=== PATIENT | female | born 1935 | race African-American/Black ===

== ENCOUNTER 2022-05-11 13:02 | Inpatient (IN) | payer OTHER ==
[~2022-05-11] VITALS: Ht 160 cm; Wt 57.2 kg
[2022-05-11 13:54] LABS: HEMOGLOBIN. 11.7 g/dL (12.0-16.0); MEAN CORPUSCULAR HEMOGLOBIN 27.5 pg (28.0-32.0); MEAN CORPUSCULAR VOLUME 84.4 fL (81.0-99.0); MEAN PLATELET VOLUME 8.4 fl (7.4-10.4); PLATELET 196 x1000/uL (130-400); RED BLOOD CELL COUNT 4.27 mill/uL (4.2-5.4)
[2022-05-11 13:59] LABS: CHLORIDE 104 mEq/L (98-107)
[2022-05-11 14:09] LABS: ETHANOL BLOOD < 10 mg/dL
[2022-05-11 14:42] LABS: PLATELET ESTIMATE NORMAL
[2022-05-11 15:37] LABS: *AMPHETAMINES SCREEN URINE NEGATIVE (NEGATIVE); *BARBITURATES SCREEN URINE NEGATIVE (NEGATIVE); *BENZODIAZEPINES SCREEN URINE NEGATIVE (NEGATIVE); *COCAINE SCREEN URINE NEGATIVE (NEGATIVE); CANNABINOID URINE SCREEN NEGATIVE (NEGATIVE); METHADONE URINE SCREEN NEGATIVE (NEGATIVE); OPIATES URINE SCREEN NEGATIVE (NEGATIVE); PHENCYCLIDINE URINE SCREEN NEGATIVE (NEGATIVE)
[2022-05-11] MEDS ORDERED: ACETAMINOPHEN 325MG TABLET PO NR (16:15)
[2022-05-11] MEDS ORDERED: CLONIDINE 0.1MG TABLET PO PRN (19:00)
[2022-05-11] MEDS ORDERED: IPRATROPIUM/ALBUTEROL 0.5-3(2.5)MG/3ML NEB HHN PRN (19:00)
[2022-05-11] MEDS ORDERED: ONDANSETRON HCL 4MG/2ML INJ IV PRN (19:00)
[2022-05-11] MEDS ORDERED: LORAZEPAM 0.5MG TABLET PO PRN (19:00)
[2022-05-11] MEDS ORDERED: ACETAMINOPHEN 325MG TABLET PO PRN (19:00)
[2022-05-11] MEDS ORDERED: DOCUSATE SODIUM 100MG CAPSULE PO PRN (19:00)
[2022-05-11] MEDS ORDERED: NALOXONE HCL 0.4MG/ML VIAL IV PRN (19:00)
[2022-05-12 05:50] LABS: BASOPHILS % 0.9 % (0.0-2.0); EOSINOPHILS % 4.5 % (0.0-5.0); HEMATOCRIT. 32.6 % (36.0-48.0); HEMOGLOBIN. 10.8 g/dL (12.0-16.0); LYMPHOCYTES % 33.6 % (20.0-50.0); MEAN CORPUSCULAR HEMOGLOBIN 27.3 pg (28.0-32.0); MEAN CORPUSCULAR VOLUME 82.3 fL (81.0-99.0); MEAN PLATELET VOLUME 8.2 fl (7.4-10.4); PLATELET 234 x1000/uL (130-400); RED BLOOD CELL COUNT 3.97 mill/uL (4.2-5.4); RED CELL DISTRIBUTION WIDTH 17.2 % (11.6-14.6)
[2022-05-12 09:54] VITALS: BP 142/68
[2022-05-12 10:02] VITALS: BP 142/68
[2022-05-12] MEDS ORDERED: TOPUD PO (10:28)
[2022-05-12] MEDS ORDERED: MECLIZINE 12.5MG TABLET PO PRN (11:45)
[2022-05-12 12:29] VITALS: BP 160/70
[2022-05-12] MEDS ORDERED: IPRATROPIUM BROMIDE (0.02%) 0.5MG/2.5ML NEB HHN PRN (15:45)
[2022-05-12] MEDS ORDERED: ALBUTEROL (0.083%) 2.5MG/3ML NEB HHN PRN (15:45)
[2022-05-12 16:00] VITALS: BP 133/74
[2022-05-12 20:00] VITALS: BP 134/74
[2022-05-12] MEDS: ACETAMINOPHEN 325MG TABLET PO PRN (21:20)
[2022-05-13] VITALS: BP 140/68
[2022-05-13 04:00] VITALS: BP 147/75
[2022-05-13 08:00] VITALS: BP 137/78
[2022-05-13 08:24] LABS: VITAMIN B12 SERUM 872 pg/mL (211-911)
[2022-05-13] MEDS: ACETAMINOPHEN 325MG TABLET PO PRN (09:55)
[2022-05-13 12:00] VITALS: BP_SYST 119; BP_SYST 163; BP_SYST 176; BP_DIAS 66; BP_DIAS 71; BP_DIAS 73
[2022-05-13 16:00] VITALS: BP 129/73
[2022-05-13] MEDS: CARBAMIDE PEROXIDE 6.5% OTIC SOLN 15ML EACH EAR SCH (16:50)
[2022-05-13 20:00] VITALS: BP 157/83
[2022-05-14] VITALS: BP 118/87
[2022-05-14] MEDS: NEOMYCIN-POLYMYXIN-HYDROCORTISONE 1% OTIC SUSP 10ML LEFT EAR SCH ×3 (03:52→17:14)
[2022-05-14 04:00] VITALS: BP 146/76
[2022-05-14] MEDS: ACETAMINOPHEN 325MG TABLET PO PRN (04:02)
[2022-05-14 08:00] VITALS: BP 101/65
[2022-05-14] MEDS: CARBAMIDE PEROXIDE 6.5% OTIC SOLN 15ML EACH EAR SCH (09:17)
[2022-05-14] MEDS: DICLOFENAC SODIUM 1% GEL 50GM TOP SCH ×4 (10:56→21:52)
[2022-05-14 11:45] VITALS: BP 116/65
[2022-05-14 16:00] VITALS: BP 147/69
[2022-05-14 20:00] VITALS: BP 149/90
[2022-05-14 20:35] LABS: PROTHROMBIN TIME 10.9 sec (9.6-11.0)
[2022-05-14] MEDS: HYDROCODONE/ACETAMINOPHEN 5/325MG TABLET PO PRN (21:51)
[2022-05-15] VITALS: BP 147/75
[2022-05-15] MEDS: NEOMYCIN-POLYMYXIN-HYDROCORTISONE 1% OTIC SUSP 10ML LEFT EAR SCH ×4 (00:05→17:25)
[2022-05-15 04:00] VITALS: BP 158/74
[2022-05-15 06:24] LABS: BASOPHILS % 0.8 % (0.0-2.0); EOSINOPHILS % 3.2 % (0.0-5.0); HEMATOCRIT. 30.1 % (36.0-48.0); HEMOGLOBIN. 10.1 g/dL (12.0-16.0); LYMPHOCYTES % 29.6 % (20.0-50.0); MEAN CORPUSCULAR HEMOGLOBIN 27.8 pg (28.0-32.0); MEAN CORPUSCULAR VOLUME 82.5 fL (81.0-99.0); MEAN PLATELET VOLUME 8.4 fl (7.4-10.4); MONOCYTES % 11.6 % (2.0-8.0); NEUTROPHILS % 54.8 % (40.0-76.0); PLATELET 213 x1000/uL (130-400); RED BLOOD CELL COUNT 3.65 mill/uL (4.2-5.4); RED CELL DISTRIBUTION WIDTH 16.9 % (11.6-14.6)
[2022-05-15 08:00] VITALS: BP 146/67
[2022-05-15] MEDS: DICLOFENAC SODIUM 1% GEL 50GM TOP SCH ×4 (08:07→20:23)
[2022-05-15 12:00] VITALS: BP 144/71
[2022-05-15] MEDS: LIDOCAINE 5% PATCH TOP SCH (15:51)
[2022-05-15 16:00] VITALS: BP 133/54
[2022-05-15 20:00] VITALS: BP 117/56
[2022-05-16] VITALS: BP 123/71
[2022-05-16] MEDS: NEOMYCIN-POLYMYXIN-HYDROCORTISONE 1% OTIC SUSP 10ML LEFT EAR SCH ×5 (01:14→23:52)
[2022-05-16 04:00] VITALS: BP 140/62
[2022-05-16] MEDS: HYDROCODONE/ACETAMINOPHEN 5/325MG TABLET PO PRN (05:17)
[2022-05-16 08:00] VITALS: BP 143/76
[2022-05-16] MEDS: DICLOFENAC SODIUM 1% GEL 50GM TOP SCH ×4 (09:00→20:37)
[2022-05-16] MEDS: LIDOCAINE 5% PATCH TOP SCH (11:05)
[2022-05-16 12:00] VITALS: BP 119/68
[2022-05-16 16:00] VITALS: BP 124/51
[2022-05-16 20:00] VITALS: BP 125/53
[2022-05-16] MEDS: ACETAMINOPHEN 325MG TABLET PO PRN (20:37)
[2022-05-17] VITALS: BP 125/47
[2022-05-17 04:00] VITALS: BP 164/76
[2022-05-17] MEDS: NEOMYCIN-POLYMYXIN-HYDROCORTISONE 1% OTIC SUSP 10ML LEFT EAR SCH ×3 (06:30→18:00)
[2022-05-17 06:56] LABS: HEMATOCRIT. 29.1 % (36.0-48.0); HEMOGLOBIN. 9.7 g/dL (12.0-16.0); MEAN CORPUSCULAR HEMOGLOBIN 27.9 pg (28.0-32.0); MEAN CORPUSCULAR VOLUME 83.2 fL (81.0-99.0); MEAN PLATELET VOLUME 8.8 fl (7.4-10.4); PLATELET 216 x1000/uL (130-400); RED BLOOD CELL COUNT 3.49 mill/uL (4.2-5.4); RED CELL DISTRIBUTION WIDTH 16.8 % (11.6-14.6)
[2022-05-17 08:00] VITALS: BP 107/42
[2022-05-17] MEDS: DICLOFENAC SODIUM 1% GEL 50GM TOP SCH ×4 (09:00→20:33)
[2022-05-17] MEDS: LIDOCAINE 5% PATCH TOP SCH (09:00)
[2022-05-17 09:39] LABS: PLATELET ESTIMATE NORMAL
[2022-05-17 12:00] VITALS: BP 119/57
[2022-05-17 16:16] VITALS: BP 136/57
[2022-05-17 20:00] VITALS: BP 153/66
[2022-05-18] VITALS: BP 129/69
[2022-05-18] MEDS: NEOMYCIN-POLYMYXIN-HYDROCORTISONE 1% OTIC SUSP 10ML LEFT EAR SCH ×5 (00:03→17:16)
[2022-05-18] MEDS: ACETAMINOPHEN 325MG TABLET PO PRN ×2 (02:24→21:00)
[2022-05-18 04:00] VITALS: BP 160/75
[2022-05-18 08:00] VITALS: BP 132/71
[2022-05-18] MEDS: DICLOFENAC SODIUM 1% GEL 50GM TOP SCH ×4 (09:00→20:35)
[2022-05-18] MEDS: LIDOCAINE 5% PATCH TOP SCH (10:19)
[2022-05-18 12:00] VITALS: BP 147/74
[2022-05-18 15:27] VITALS: BP 150/87
[2022-05-18 20:00] VITALS: BP 119/55
[2022-05-19] VITALS: BP 122/80
[2022-05-19] MEDS: NEOMYCIN-POLYMYXIN-HYDROCORTISONE 1% OTIC SUSP 10ML LEFT EAR SCH ×2 (00:08→06:08)
[2022-05-19 04:00] VITALS: BP 145/66
[2022-05-19] MEDS: LIDOCAINE 5% PATCH TOP SCH (08:32)
[2022-05-19] MEDS: DICLOFENAC SODIUM 1% GEL 50GM TOP SCH ×4 (08:32→20:18)
[2022-05-19 08:47] VITALS: BP 148/69
[2022-05-19 12:33] VITALS: BP 147/63
[2022-05-19 15:52] VITALS: BP 128/80
[2022-05-19 20:00] VITALS: BP 109/59
[2022-05-20] VITALS: BP 111/80
[2022-05-20 04:00] VITALS: BP 137/56
[2022-05-20] MEDS: ACETAMINOPHEN 325MG TABLET PO PRN ×2 (06:25→20:38)
[2022-05-20] MEDS: LIDOCAINE 5% PATCH TOP SCH (09:02)
[2022-05-20] MEDS: DICLOFENAC SODIUM 1% GEL 50GM TOP SCH ×4 (09:35→20:42)
[2022-05-20 11:27] VITALS: BP 125/87
[2022-05-20] MEDS ORDERED: DICL100G31 TP (13:07)
[2022-05-20] MEDS ORDERED: ASPI-1497 MT (13:07)
[2022-05-20] MEDS ORDERED: LIDO700A30 TOP (13:07)
[2022-05-20] MEDS ORDERED: NALOXONE HCL 0.4MG/ML VIAL IV PRN (13:30)
[2022-05-20] MEDS: HYDROCODONE/ACETAMINOPHEN 5/325MG TABLET PO PRN (15:48)
[2022-05-20 16:47] VITALS: BP 142/59
[2022-05-20 20:00] VITALS: BP 122/51
[2022-05-21] VITALS (7 sets, daily range): BP systolic 115–157; BP diastolic 55–96
[2022-05-21] MEDS: ACETAMINOPHEN 325MG TABLET PO PRN (02:21)
[2022-05-21] MEDS: DICLOFENAC SODIUM 1% GEL 50GM TOP SCH ×4 (09:27→21:11)
[2022-05-21] MEDS: LIDOCAINE 5% PATCH TOP SCH (09:28)
[2022-05-21] MEDS ORDERED: CEPHALEXIN 250MG/5ML ORAL SYRINGE PO SCH (17:00)
[2022-05-21] MEDS: CEPHALEXIN 250MG CAPSULE PO SCH (17:28)
[2022-05-22] VITALS: BP_SYST 137; BP_SYST 140; BP_DIAS 84; BP_DIAS 93
[2022-05-22] MEDS: CEPHALEXIN 250MG CAPSULE PO SCH ×3 (01:41→17:21)
[2022-05-22] MEDS: HYDROCODONE/ACETAMINOPHEN 5/325MG TABLET PO PRN (01:42)
[2022-05-22 04:00] VITALS: BP 145/67
[2022-05-22 08:00] VITALS: BP 147/53
[2022-05-22] MEDS: LIDOCAINE 5% PATCH TOP SCH (10:00)
[2022-05-22] MEDS: DICLOFENAC SODIUM 1% GEL 50GM TOP SCH ×4 (10:21→20:55)
[2022-05-22 12:00] VITALS: BP 144/93
[2022-05-22 16:00] VITALS: BP 144/82
[2022-05-22 20:00] VITALS: BP 137/67
[2022-05-22] MEDS: ACETAMINOPHEN 325MG TABLET PO PRN (20:55)
[2022-05-23] MEDS: CEPHALEXIN 250MG CAPSULE PO SCH ×3 (00:34→17:03)
[2022-05-23 04:00] VITALS: BP 143/59
[2022-05-23 08:00] VITALS: BP 146/68
[2022-05-23] MEDS: DICLOFENAC SODIUM 1% GEL 50GM TOP SCH ×4 (08:59→21:57)
[2022-05-23] MEDS: LIDOCAINE 5% PATCH TOP SCH (09:02)
[2022-05-23] MEDS: ACETAMINOPHEN 325MG TABLET PO PRN (09:05)
[2022-05-23 12:00] VITALS: BP 142/64
[2022-05-23 16:00] VITALS: BP 138/70
[2022-05-23 20:00] VITALS: BP 133/53
[2022-05-24] VITALS (7 sets, daily range): BP systolic 129–137; BP diastolic 51–92
[2022-05-24] MEDS: CEPHALEXIN 250MG CAPSULE PO SCH ×3 (01:18→17:49)
[2022-05-24] MEDS: DICLOFENAC SODIUM 1% GEL 50GM TOP SCH ×4 (09:00→23:39)
[2022-05-24] MEDS: ACETAMINOPHEN 325MG TABLET PO PRN (10:14)
[2022-05-24] MEDS: LIDOCAINE 5% PATCH TOP SCH (10:15)
[2022-05-25] VITALS: BP 147/56
[2022-05-25] MEDS: CEPHALEXIN 250MG CAPSULE PO SCH ×3 (00:38→17:17)
[2022-05-25 04:00] VITALS: BP 114/66
[2022-05-25] MEDS: ACETAMINOPHEN 325MG TABLET PO PRN ×3 (05:13→15:43)
[2022-05-25 08:00] VITALS: BP 156/65
[2022-05-25] MEDS: DICLOFENAC SODIUM 1% GEL 50GM TOP SCH ×4 (09:00→21:00)
[2022-05-25] MEDS: LIDOCAINE 5% PATCH TOP SCH (10:23)
[2022-05-25 12:00] VITALS: BP 145/68
[2022-05-25 16:00] VITALS: BP 143/69
[2022-05-25] MEDS: OFLOXACIN OTIC DROPS/10 ML BOTTLE LEFT EAR SCH (17:17)
[2022-05-26] VITALS: BP 111/63
[2022-05-26] MEDS: ACETAMINOPHEN 325MG TABLET PO PRN ×2 (01:06→21:59)
[2022-05-26] MEDS: CEPHALEXIN 250MG CAPSULE PO SCH ×2 (01:09→09:47)
[2022-05-26 08:00] VITALS: BP 160/69
[2022-05-26] MEDS: OFLOXACIN OTIC DROPS/10 ML BOTTLE LEFT EAR SCH (09:00)
[2022-05-26] MEDS: LIDOCAINE 5% PATCH TOP SCH (09:46)
[2022-05-26] MEDS: DICLOFENAC SODIUM 1% GEL 50GM TOP SCH ×2 (09:47→21:00)
[2022-05-26 20:00] VITALS: BP 137/68
[2022-05-27] VITALS: BP 128/60
[2022-05-27 04:00] VITALS: BP 149/88
[2022-05-27] MEDS: ACETAMINOPHEN 325MG TABLET PO PRN ×2 (06:28→20:30)
[2022-05-27 08:00] VITALS: BP 130/53
[2022-05-27] MEDS: DICLOFENAC SODIUM 1% GEL 50GM TOP SCH ×4 (09:00→20:23)
[2022-05-27] MEDS: OFLOXACIN OTIC DROPS/10 ML BOTTLE LEFT EAR SCH ×3 (09:00→18:01)
[2022-05-27] MEDS: LIDOCAINE 5% PATCH TOP SCH (09:32)
[2022-05-27 12:00] VITALS: BP 104/59
[2022-05-27 16:00] VITALS: BP 115/63
[2022-05-27 20:00] VITALS: BP 146/67
[2022-05-28] VITALS: BP 138/60
[2022-05-28 04:00] VITALS: BP 113/62
[2022-05-28] MEDS: DICLOFENAC SODIUM 1% GEL 50GM TOP SCH ×2 (09:00→21:34)
[2022-05-28] MEDS: OFLOXACIN OTIC DROPS/10 ML BOTTLE LEFT EAR SCH (10:13)
[2022-05-28] MEDS: LIDOCAINE 5% PATCH TOP SCH (11:25)
[2022-05-28] MEDS: ACETAMINOPHEN 325MG TABLET PO PRN (11:26)
[2022-05-28 12:00] VITALS: BP 147/68
[2022-05-28 16:00] VITALS: BP 150/62
[2022-05-28 20:00] VITALS: BP 142/62
[2022-05-29 01:03] VITALS: BP 99/55
[2022-05-29 04:00] VITALS: BP 153/58
[2022-05-29] MEDS: ACETAMINOPHEN 325MG TABLET PO PRN (07:06)
[2022-05-29 08:00] VITALS: BP 106/74
[2022-05-29] MEDS: DICLOFENAC SODIUM 1% GEL 50GM TOP SCH ×3 (09:00→17:00)
[2022-05-29] MEDS: OFLOXACIN OTIC DROPS/10 ML BOTTLE LEFT EAR SCH ×3 (09:00→17:33)
[2022-05-29] MEDS: LIDOCAINE 5% PATCH TOP SCH (09:20)
[2022-05-29 12:00] VITALS: BP 161/73
[2022-05-29 16:00] VITALS: BP 148/77
[2022-05-29 20:00] VITALS: BP 145/69
[2022-05-30] VITALS: BP 155/76
[2022-05-30] MEDS: DICLOFENAC SODIUM 1% GEL 50GM TOP SCH ×4 (00:03→21:21)
[2022-05-30 04:00] VITALS: BP 152/65
[2022-05-30 08:00] VITALS: BP 151/81
[2022-05-30] MEDS: OFLOXACIN OTIC DROPS/10 ML BOTTLE LEFT EAR SCH (08:51)
[2022-05-30] MEDS: LIDOCAINE 5% PATCH TOP SCH (08:52)
[2022-05-30 12:00] VITALS: BP 143/71
[2022-05-30 16:00] VITALS: BP 150/75
[2022-05-30 20:00] VITALS: BP 118/70
[2022-05-31] VITALS (7 sets, daily range): BP systolic 125–149; BP diastolic 69–93
[2022-05-31] MEDS: OFLOXACIN OTIC DROPS/10 ML BOTTLE LEFT EAR SCH ×2 (09:00→12:01)
[2022-05-31] MEDS: DICLOFENAC SODIUM 1% GEL 50GM TOP SCH ×2 (12:02→16:56)
[2022-05-31] MEDS: LIDOCAINE 5% PATCH TOP SCH (12:03)
[2022-05-31] MEDS: ACETAMINOPHEN 325MG TABLET PO PRN (12:15)
== END 2022-05-31 17:05 | DRG 73 ==
LOC: ER 13:17 → EDBEDREQ 15:34 → MICUSO 16:41 → EDBEDREQTM 16:54 → EDBEDREQ 16:54 → 7WST 05-12 09:29 → 6EST 05-15 21:53 → 5WST 05-18 13:40
PROVIDERS: ADMIT Internal Medicine; ATTEND Internal Medicine
PROC: 4A10X4Z Monitoring of Central Nervous Electrical Activity, External Approach (ICD-10-PCS; principal; 2022-05-14)
DX: G90.8 Other disorders of autonomic nervous system (principal); G82.50 Quadriplegia, unspecified; M48.02 Spinal stenosis, cervical region; H61.20 Impacted cerumen, unspecified ear; S09.90XA Unspecified injury of head, initial encounter; J32.0 Chronic maxillary sinusitis; G95.20 Unspecified cord compression; I10 Essential (primary) hypertension; F17.210 Nicotine dependence, cigarettes, uncomplicated; F03.90 Unspecified dementia, unspecified severity, without behavioral disturbance, psychotic disturbance, mood disturbance, and anxiety; H81.10 Benign paroxysmal vertigo, unspecified ear; M48.061 Spinal stenosis, lumbar region without neurogenic claudication; J44.9 Chronic obstructive pulmonary disease, unspecified; W19.XXXA Unspecified fall, initial encounter; Z20.822 Contact with and (suspected) exposure to COVID-19; Z82.49 Family history of ischemic heart disease and other diseases of the circulatory system
CPT/HCPCS: 36415; 70551; 71045; 72141; 72146; 72148; 80048; 80053; 80305; 80320; 82607; 83880; 84443; 84484; 85025; 86850; 86900; 87426; 93005; 93306; 93880; 95816; 97110; 97116; 97163; 97164; 97167; 97530; 99285; C1893; J8597; G0480

== ENCOUNTER 2022-12-18 10:57 | Inpatient (IN) | payer OTHER ==
[~2022-12-18] VITALS: Ht 160 cm; Wt 56.4 kg
[~2022-12-18 10:57] MED LIST: ASPI-1497 MT; DICL100G58 TP; LIDO700A30 TOP; TOPUD PO
[2022-12-18 13:52] LABS: BASOPHILS % 0.5 % (0.0-2.0); EOSINOPHILS % 5.9 % (0.0-5.0); HEMATOCRIT. 36.8 % (36.0-48.0); HEMOGLOBIN. 11.6 g/dL (12.0-16.0); LYMPHOCYTES % 25.9 % (20.0-50.0); MEAN CORPUSCULAR HEMOGLOBIN 26.6 pg (28.0-32.0); MEAN CORPUSCULAR HGB CONC 31.5 g/dL (31.0-37.0); MEAN CORPUSCULAR VOLUME 84.3 fL (81.0-99.0); MEAN PLATELET VOLUME 8.4 fl (7.4-10.4); MONOCYTES % 8.7 % (2.0-8.0); PLATELET 234 x1000/uL (130-400); RED BLOOD CELL COUNT 4.37 mill/uL (4.2-5.4); RED CELL DISTRIBUTION WIDTH 17.6 % (11.6-14.6); WHITE BLOOD COUNT 5.1 x1000/uL (4.5-11.0)
[2022-12-18 14:16] LABS: CHLORIDE 103 mEq/L (98-107); INDEX HEMOLYSI 2 (1-3); INDEX ICTERIC 1 (1-4); INDEX LIPEMIC 1 (1-3); POTASSIUM 3.7 mEq/L (3.5-5.1); SODIUM 136 mEq/L (136-145)
[2022-12-18 14:27] LABS: ALANINE AMINOTRANSFERASE 11 IU/L (13-61); ALBUMIN 3.4 g/dL (3.4-5.0); ASPARTATE AMINOTRANSFERASE 20 IU/L (15-37); BILIRUBIN TOTAL 0.3 mg/dL (0.1-1.0); CALCIUM 10.2 mg/dL (8.5-10.1); CARBON DIOXIDE 26 mEq/L (21-32); CREATININE 1.3 mg/dL (0.6-1.3); GLUCOSE 101 mg/dL (70-105); NT PRO B-TYPE NATRIURETIC PEP 447 pg/mL (5-125); PROTEIN TOTAL 7.5 g/dL (6.0-8.3); TROPONIN I HIGH SENSITIVITY 28 ng/L (<54); UREA NITROGEN BLOOD 18 mg/dL (7-21)
[2022-12-18 21:00] VITALS: BP 167/77; PULSE 68; RESP 15; TEMP 98.2
[2022-12-18] MEDS ORDERED: CLONIDINE 0.1MG TABLET PO PRN (21:00)
[2022-12-18] MEDS ORDERED: DOCUSATE SODIUM 100MG CAPSULE PO PRN (21:00)
[2022-12-18] MEDS ORDERED: GUAIFENESIN 200MG/10ML SUGAR FREE UDC PO PRN (21:00)
[2022-12-18] MEDS ORDERED: ONDANSETRON HCL 4MG/2ML INJ IV PRN (21:00)
[2022-12-18] MEDS ORDERED: MAGNESIUM/ALUMINUM HYDROXIDE/SIMETHICONE 30ML UDC PO PRN (21:00)
[2022-12-18] MEDS ORDERED: ACETAMINOPHEN 325MG TABLET PO PRN ×2 (21:00)
[2022-12-18] MEDS ORDERED: IPRATROPIUM/ALBUTEROL 0.5-3(2.5)MG/3ML NEB HHN PRN (21:00)
[2022-12-18 21:01] VITALS: BP 167/77; PULSE 68; RESP 18; TEMP 98.2
[2022-12-18 21:24] VITALS: BP 156/82; PULSE 62; RESP 17
[2022-12-18] MEDS ORDERED: MECLIZINE 12.5MG TABLET PO PRN (21:45)
[2022-12-18 21:55] VITALS: BP 161/72; PULSE 66; RESP 15
[2022-12-18 21:58] VITALS: BP 156/115; PULSE 74; RESP 14
[2022-12-18 22:03] VITALS: BP 147/114; RESP 15
[2022-12-18] MEDS: ASPIRIN 81MG TABLET PO SCH (22:17)
[2022-12-18] MEDS: AMLODIPINE 5MG TABLET PO SCH (22:18)
[2022-12-18 23:43] LABS: INDEX HEMOLYSI 1 (1-3); INDEX ICTERIC 1 (1-4); INDEX LIPEMIC 1 (1-3)
[2022-12-18 23:51] LABS: CREATINE KINASE 70 IU/L (26-192); IRON 50 ug/dL (50-175); TOTAL IRON BINDING CAPACITY 230 ug/dL (250-450); TROPONIN I HIGH SENSITIVITY 28 ng/L (<54)
[2022-12-18 23:56] LABS: LACTIC ACID 2.2 mmol/L (0.4-2.0)
[2022-12-19 00:20] VITALS: BP 156/75; PULSE 74; RESP 19; TEMP 98.9
[2022-12-19 04:00] VITALS: BP 135/99; PULSE 75; RESP 17; TEMP 98.8
[2022-12-19] MEDS: BRIMONIDINE 0.2% OPHTH DROPS 10ML BOTHEYE SCH ×3 (06:06→23:29)
[2022-12-19] MEDS ORDERED: HYDR-4005 MT (06:18)
[2022-12-19] MEDS ORDERED: AMLO5TAB88 MT (06:18)
[2022-12-19] MEDS ORDERED: BRIM.2 BOTHEYE (06:18)
[2022-12-19] MEDS ORDERED: FURO-152 PO (06:18)
[2022-12-19] MEDS ORDERED: DONE5TAB7 PO (06:18)
[2022-12-19 08:00] VITALS: BP 127/97; PULSE 80; RESP 17; TEMP 98
[2022-12-19 09:09] LABS: BASOPHILS % 0.9 % (0.0-2.0); EOSINOPHILS % 7.8 % (0.0-5.0); HEMATOCRIT. 34.8 % (36.0-48.0); HEMOGLOBIN. 11.3 g/dL (12.0-16.0); LYMPHOCYTES % 24.7 % (20.0-50.0); MEAN CORPUSCULAR HEMOGLOBIN 26.6 pg (28.0-32.0); MEAN CORPUSCULAR HGB CONC 32.5 g/dL (31.0-37.0); MEAN CORPUSCULAR VOLUME 81.9 fL (81.0-99.0); MEAN PLATELET VOLUME 7.9 fl (7.4-10.4); MONOCYTES % 8.8 % (2.0-8.0); NEUTROPHILS % 57.8 % (40.0-76.0); PLATELET 210 x1000/uL (130-400); RED BLOOD CELL COUNT 4.25 mill/uL (4.2-5.4); RED CELL DISTRIBUTION WIDTH 16.5 % (11.6-14.6); WHITE BLOOD COUNT 3.6 x1000/uL (4.5-11.0)
[2022-12-19] MEDS: AMLODIPINE 5MG TABLET PO SCH (09:52)
[2022-12-19] MEDS: ASPIRIN 81MG TABLET PO SCH (09:52)
[2022-12-19 10:31] LABS: INDEX HEMOLYSI 1 (1-3)
[2022-12-19 10:37] LABS: CHLORIDE 103 mEq/L (98-107); INDEX HEMOLYSI 1 (1-3); INDEX ICTERIC 1 (1-4); INDEX LIPEMIC 1 (1-3); POTASSIUM 4.3 mEq/L (3.5-5.1); SODIUM 135 mEq/L (136-145)
[2022-12-19 10:39] LABS: CREATINE KINASE 65 IU/L (26-192); TROPONIN I HIGH SENSITIVITY 31 ng/L (<54)
[2022-12-19 10:53] LABS: ALANINE AMINOTRANSFERASE 13 IU/L (13-61); ALBUMIN 3.4 g/dL (3.4-5.0); ASPARTATE AMINOTRANSFERASE 17 IU/L (15-37); BILIRUBIN TOTAL 0.5 mg/dL (0.1-1.0); CALCIUM 10.4 mg/dL (8.5-10.1); CARBON DIOXIDE 29 mEq/L (21-32); CHOLESTEROL 254 mg/dL (<200); CREATININE 1.1 mg/dL (0.6-1.3); GLUCOSE 88 mg/dL (70-105); HDL CHOLESTEROL 74 mg/dL (40-59); LDL CHOLESTEROL 155 mg/dL (5-100); PROTEIN TOTAL 7.4 g/dL (6.0-8.3); T4 FREE 0.98 ng/dL (0.76-1.46); THYROID STIMULATING HORMONE 0.98 uIU/mL (0.36-3.74); TRIGLYCERIDE 125 mg/dL (0-150); UREA NITROGEN BLOOD 17 mg/dL (7-21)
[2022-12-19 11:00] VITALS: BP_SYST 105; BP_SYST 134; BP_SYST 98; BP_DIAS 60; BP_DIAS 62; BP_DIAS 72
[2022-12-19] MEDS ORDERED: NALOXONE HCL 0.4MG/ML VIAL IV PRN (11:45)
[2022-12-19 16:00] VITALS: BP 102/55; PULSE 76; RESP 18; TEMP 98.4
[2022-12-19 20:00] VITALS: BP 122/88; PULSE 75; RESP 17; TEMP 98.5
[2022-12-19] MEDS: ATORVASTATIN CALCIUM 40MG TABLET PO SCH (23:29)
[2022-12-20] VITALS: BP 100/48; PULSE 62; RESP 21; TEMP 98.2
[2022-12-20 04:00] VITALS: BP 152/74; PULSE 97; RESP 16; TEMP 98.3
[2022-12-20 06:25] LABS: BASOPHILS % 0.8 % (0.0-2.0); EOSINOPHILS % 5.2 % (0.0-5.0); HEMATOCRIT. 25.5 % (36.0-48.0); HEMOGLOBIN. 8.6 g/dL (12.0-16.0); LYMPHOCYTES % 19.3 % (20.0-50.0); MEAN CORPUSCULAR HEMOGLOBIN 28.4 pg (28.0-32.0); MEAN CORPUSCULAR HGB CONC 33.9 g/dL (31.0-37.0); MEAN CORPUSCULAR VOLUME 83.7 fL (81.0-99.0); MEAN PLATELET VOLUME 9.4 fl (7.4-10.4); MONOCYTES % 9.7 % (2.0-8.0); PLATELET 246 x1000/uL (130-400); RED BLOOD CELL COUNT 3.04 mill/uL (4.2-5.4); RED CELL DISTRIBUTION WIDTH 18.7 % (11.6-14.6); WHITE BLOOD COUNT 9.1 x1000/uL (4.5-11.0)
[2022-12-20] MEDS: BRIMONIDINE 0.2% OPHTH DROPS 10ML BOTHEYE SCH ×2 (06:30→14:00)
[2022-12-20 07:03] LABS: POTASSIUM 3.1 mEq/L (3.5-5.1)
[2022-12-20 07:24] LABS: CALCIUM 7.9 mg/dL (8.5-10.1); CREATININE 3.8 mg/dL (0.6-1.3); PHOSPHORUS 2.2 mg/dL (2.5-4.9)
[2022-12-20 08:00] VITALS: BP 123/64; PULSE 88; RESP 15; TEMP 98
[2022-12-20] MEDS ORDERED: POTASSIUM-SODIUM PHOSPHATE POWDER PACKET PO NR (09:00)
[2022-12-20] MEDS ORDERED: CALCIUM CARBONATE/VITAMIN D3 500MG TABLET PO NR (09:00)
[2022-12-20] MEDS ORDERED: POTASSIUM CHLORIDE 20MEQ TABLET SR PO NR (09:00)
[2022-12-20] MEDS ORDERED: SODIUM CHLORIDE 0.9% 1,000 ML IV ONE (09:00)
[2022-12-20] MEDS: ASPIRIN 81MG TABLET PO SCH (09:32)
[2022-12-20 10:22] LABS: POTASSIUM 4.2 mEq/L (3.5-5.1)
[2022-12-20 10:27] LABS: CREATININE 1.1 mg/dL (0.6-1.3)
[2022-12-20 12:00] VITALS: BP 146/64; PULSE 90; RESP 17; TEMP 98.3
[2022-12-20] MEDS: AMLODIPINE 5MG TABLET PO SCH (15:12)
[2022-12-20 16:00] VITALS: BP 130/61; PULSE 77; RESP 18; TEMP 98
[2022-12-20 20:00] VITALS: BP 135/70; PULSE 71; RESP 19; TEMP 98.3
[2022-12-20] MEDS: ATORVASTATIN CALCIUM 40MG TABLET PO SCH (21:00)
[2022-12-21] VITALS (7 sets, daily range): BP systolic 96–126; BP diastolic 57–82; PULSE 60–103; RESP 16–22; TEMP 97.7–99
[2022-12-21] MEDS: BRIMONIDINE 0.2% OPHTH DROPS 10ML BOTHEYE SCH ×3 (06:27→21:01)
[2022-12-21 07:57] LABS: BASOPHILS % 0.9 % (0.0-2.0); EOSINOPHILS % 11.5 % (0.0-5.0); HEMATOCRIT. 31.9 % (36.0-48.0); HEMOGLOBIN. 10.8 g/dL (12.0-16.0); LYMPHOCYTES % 32.8 % (20.0-50.0); MEAN CORPUSCULAR HEMOGLOBIN 27.8 pg (28.0-32.0); MEAN CORPUSCULAR HGB CONC 33.9 g/dL (31.0-37.0); MEAN PLATELET VOLUME 8.7 fl (7.4-10.4); NEUTROPHILS % 43.8 % (40.0-76.0); PLATELET 218 x1000/uL (130-400); RED BLOOD CELL COUNT 3.89 mill/uL (4.2-5.4); RED CELL DISTRIBUTION WIDTH 16.6 % (11.6-14.6); WHITE BLOOD COUNT 2.8 x1000/uL (4.5-11.0)
[2022-12-21 08:49] LABS: POTASSIUM 4.5 mEq/L (3.5-5.1)
[2022-12-21 08:50] LABS: CALCIUM 10.5 mg/dL (8.5-10.1)
[2022-12-21 09:00] LABS: CREATININE 1.2 mg/dL (0.6-1.3); PHOSPHORUS 2.5 mg/dL (2.5-4.9)
[2022-12-21] MEDS: ASPIRIN 81MG TABLET PO SCH (11:19)
[2022-12-21] MEDS: AMLODIPINE 5MG TABLET PO SCH (11:20)
[2022-12-21] MEDS: TRAMADOL 50MG TABLET PO PRN (11:21)
[2022-12-21] MEDS: ATORVASTATIN CALCIUM 40MG TABLET PO SCH (20:58)
[2022-12-22 00:26] VITALS: BP 124/68; PULSE 60; RESP 16; TEMP 98.2
[2022-12-22 04:00] VITALS: BP 138/68; PULSE 66; RESP 19; TEMP 98
[2022-12-22] MEDS: BRIMONIDINE 0.2% OPHTH DROPS 10ML BOTHEYE SCH ×3 (06:10→21:35)
[2022-12-22 08:00] VITALS: BP 145/75; PULSE 66; RESP 15; TEMP 99
[2022-12-22] MEDS: ASPIRIN 81MG TABLET PO SCH (09:49)
[2022-12-22] MEDS: AMLODIPINE 5MG TABLET PO SCH (09:49)
[2022-12-22 12:00] VITALS: BP 126/80; PULSE 76; RESP 22; TEMP 97
[2022-12-22 16:00] VITALS: BP 124/68; PULSE 73; RESP 16; TEMP 99
[2022-12-22] MEDS: TRAMADOL 50MG TABLET PO PRN (17:41)
[2022-12-22 20:00] VITALS: BP 95/56; PULSE 74; RESP 18; TEMP 98.7
[2022-12-22] MEDS: ATORVASTATIN CALCIUM 40MG TABLET PO SCH (21:12)
[2022-12-23] VITALS: BP 115/57; PULSE 62; RESP 14; TEMP 98.4
[2022-12-23 04:00] VITALS: BP 135/81; PULSE 70; RESP 20; TEMP 98.8
[2022-12-23 08:00] VITALS: BP 115/55; PULSE 88; RESP 18; TEMP 98.4
[2022-12-23] MEDS: ASPIRIN 81MG TABLET PO SCH (09:27)
[2022-12-23] MEDS: AMLODIPINE 5MG TABLET PO SCH (09:27)
[2022-12-23] MEDS: BRIMONIDINE 0.2% OPHTH DROPS 10ML BOTHEYE SCH ×3 (09:27→22:05)
[2022-12-23 12:00] VITALS: BP 118/64; PULSE 80; RESP 15; TEMP 98.7
[2022-12-23 16:00] VITALS: BP 120/66; PULSE 84; RESP 20; TEMP 98.6
[2022-12-23 20:00] VITALS: BP 108/61; PULSE 76; RESP 15; TEMP 97.6
[2022-12-23] MEDS: ATORVASTATIN CALCIUM 40MG TABLET PO SCH (22:00)
[2022-12-24] VITALS: BP 113/75; PULSE 65; RESP 14; TEMP 98.6
[2022-12-24 04:00] VITALS: BP 116/63; PULSE 71; RESP 15; TEMP 98.6
[2022-12-24] MEDS: BRIMONIDINE 0.2% OPHTH DROPS 10ML BOTHEYE SCH (06:41)
[2022-12-24 08:00] VITALS: BP 127/91; PULSE 86; RESP 16; TEMP 98
[2022-12-24] MEDS: ASPIRIN 81MG TABLET PO SCH (10:45)
[2022-12-24] MEDS: AMLODIPINE 5MG TABLET PO SCH (10:45)
[2022-12-24 12:00] VITALS: BP 122/63; PULSE 84; RESP 18; TEMP 98.1
[2022-12-24 13:22] VITALS: BP 126/66; PULSE 84; TEMP 98.1; O2SAT 99
== END 2022-12-24 15:24 | disposition home or self-care (01) | DRG 312 ==
LOC: ER 10:57 → EDBEDREQTM 18:20 → EDBEDREQ 18:20 → 3WST 22:01
PROVIDERS: ADMIT Hospitalist; ATTEND Hospitalist
PROC: 4B02XSZ Measurement of Cardiac Pacemaker, External Approach (ICD-10-PCS; principal; 2022-12-24)
DX: I95.1 Orthostatic hypotension (principal); G90.8 Other disorders of autonomic nervous system; E78.5 Hyperlipidemia, unspecified; D72.10 Eosinophilia, unspecified; F02.80 Dementia in other diseases classified elsewhere, unspecified severity, without behavioral disturbance, psychotic disturbance, mood disturbance, and anxiety; G30.9 Alzheimer's disease, unspecified; I10 Essential (primary) hypertension; H40.9 Unspecified glaucoma; E83.52 Hypercalcemia; D53.9 Nutritional anemia, unspecified; I44.4 Left anterior fascicular block; Z95.0 Presence of cardiac pacemaker; Z86.73 Personal history of transient ischemic attack (TIA), and cerebral infarction without residual deficits; Z96.642 Presence of left artificial hip joint; W18.30XA Fall on same level, unspecified, initial encounter; Y93.89 Activity, other specified; Y92.89 Other specified places as the place of occurrence of the external cause; Y99.8 Other external cause status
CPT/HCPCS: 36415; 71045; 72170; 80048; 80053; 80061; 82550; 82607; 82728; 82746; 83540; 83550; 83605; 83735; 83880; 83970; 84100; 84145; 84439; 84443; 84484; 85025; 93005; 93306; 93880; 97162; 97166; 99285

== ENCOUNTER 2023-11-16 18:51 | Inpatient (IN) | payer MEDICARE, OTHER ==
[~2023-11-16] VITALS: Ht 160 cm; Wt 60.3 kg
[~2023-11-16 18:51] MED LIST changes: +AMLO5TAB88 MT; +BRIM.2 BOTHEYE; +DONE5TAB7 PO; +FURO-152 PO
[2023-11-16] MEDS ORDERED: MORPHINE SULFATE 4 MG/ML INJ (FOR IV/IM USE) IV STA (19:25)
[2023-11-16 20:41] LABS: BASOPHILS % 0.4 % (0.0-2.0); DIFFERENTIAL COMMENT 0; EOSINOPHILS % 4.5 % (0.0-5.0); HEMOGLOBIN. 8.3 g/dL (12.0-16.0); MEAN CORPUSCULAR HEMOGLOBIN 25.4 pg (28.0-32.0); MEAN CORPUSCULAR HGB CONC 31.9 g/dL (31.0-37.0); MEAN CORPUSCULAR VOLUME 79.3 fL (81.0-99.0); MEAN PLATELET VOLUME 7.4 fl (7.4-10.4); MONOCYTES % 8.3 % (2.0-8.0); NEUTROPHILS % 73.8 % (40.0-76.0); PLATELET 374 x1000/uL (130-400); RED BLOOD CELL COUNT 3.28 mill/uL (4.2-5.4); RED CELL DISTRIBUTION WIDTH 19.1 % (11.6-14.6); WHITE BLOOD COUNT 4.5 x1000/uL (4.5-11.0)
[2023-11-16 20:45] LABS: CHLORIDE 106 mEq/L (98-107); POTASSIUM 4.6 mEq/L (3.5-5.1); SODIUM 135 mEq/L (136-145)
[2023-11-16 20:46] LABS: CARBON DIOXIDE 29 mEq/L (21-32)
[2023-11-16 20:48] LABS: PROTHROMBIN TIME 11.5 sec (9.6-11.0)
[2023-11-16 20:51] LABS: GLUCOSE 100 mg/dL (70-105); UREA NITROGEN BLOOD 21 mg/dL (9-23)
[2023-11-16 20:53] LABS: TROPONIN I HIGH SENSITIVITY 8 ng/L (3.0-34)
[2023-11-17] VITALS (8 sets, daily range): BP systolic 95–127; BP diastolic 35–57; PULSE 56–67; RESP 18–20; TEMP 35.89176–36.7516; O2SAT 100
[2023-11-17] MEDS: ONDANSETRON HCL 4MG/2ML INJ IV STA (01:45)
[2023-11-17] MEDS: MORPHINE SULFATE 4 MG/ML INJ (FOR IV/IM USE) IV NR (01:45)
[2023-11-17] MEDS: ONDANSETRON HCL 4MG/2ML INJ IV NR (01:46)
[2023-11-17] MEDS ORDERED: IPRATROPIUM/ALBUTEROL 0.5-3(2.5)MG/3ML NEB NEB PRN (09:45)
[2023-11-17] MEDS: HYDROCODONE/ACETAMINOPHEN 5/325MG TABLET PO PRN (13:03)
[2023-11-17] MEDS ORDERED: NALOXONE HCL 0.4MG/ML VIAL IV PRN (18:45)
[2023-11-17] MEDS: DEXT 5%/0.45% NACL 1000ML 1,000 ML IV SCH (20:32)
[2023-11-17 21:05] LABS: BASOPHILS % 0.5 % (0.0-2.0); EOSINOPHILS % 7.2 % (0.0-5.0); HEMATOCRIT. 26.5 % (36.0-48.0); HEMOGLOBIN. 8.3 g/dL (12.0-16.0); LYMPHOCYTES % 23.6 % (20.0-50.0); MEAN CORPUSCULAR HEMOGLOBIN 25.5 pg (28.0-32.0); MEAN CORPUSCULAR HGB CONC 31.3 g/dL (31.0-37.0); MEAN CORPUSCULAR VOLUME 81.3 fL (81.0-99.0); MEAN PLATELET VOLUME 7.4 fl (7.4-10.4); NEUTROPHILS % 55.7 % (40.0-76.0); PLATELET 336 x1000/uL (130-400); RED BLOOD CELL COUNT 3.26 mill/uL (4.2-5.4); RED CELL DISTRIBUTION WIDTH 19.1 % (11.6-14.6); WHITE BLOOD COUNT 3.5 x1000/uL (4.5-11.0)
[2023-11-17 21:15] LABS: CHLORIDE 104 mEq/L (98-107); POTASSIUM 4.6 mEq/L (3.5-5.1); SODIUM 135 mEq/L (136-145)
[2023-11-17 21:16] LABS: CALCIUM 9.7 mg/dL (8.7-10.4); CARBON DIOXIDE 27 mEq/L (21-32)
[2023-11-17 21:21] LABS: GLUCOSE 95 mg/dL (70-105); UREA NITROGEN BLOOD 18 mg/dL (9-23)
[2023-11-18] VITALS: BP 127/58; PULSE 63; RESP 18; TEMP 35.5584; O2SAT 100
[2023-11-18 04:00] VITALS: BP 115/40; PULSE 65; RESP 18; TEMP 36.16956; O2SAT 100
[2023-11-18 08:00] VITALS: BP 132/57; PULSE 65; RESP 18; TEMP 36.3918; O2SAT 99
[2023-11-18 12:00] VITALS: BP 127/47; PULSE 60; RESP 18; TEMP 36.50292; O2SAT 99
[2023-11-18 16:00] VITALS: BP 100/70; PULSE 68; RESP 18; TEMP 36.22512; O2SAT 99
[2023-11-18 20:00] VITALS: BP 144/66; PULSE 66; RESP 18; TEMP 36.72516; O2SAT 97
[2023-11-19] VITALS: BP 122/60; PULSE 70; RESP 18; TEMP 36.28068; O2SAT 97
[2023-11-19 04:00] VITALS: BP 135/53; PULSE 76; RESP 19; TEMP 36.61404; O2SAT 97
[2023-11-19 08:00] VITALS: BP 126/50; PULSE 65; RESP 22; TEMP 36.72516
[2023-11-19 12:00] VITALS: BP 120/70; PULSE 65; RESP 18; TEMP 37.00296; O2SAT 96
[2023-11-19 16:00] VITALS: BP 123/65; PULSE 80; RESP 16; TEMP 37.28076; O2SAT 97
[2023-11-19 20:00] VITALS: BP 125/52; PULSE 78; RESP 18; TEMP 36.55848; O2SAT 98
[2023-11-20] VITALS: BP 110/61; PULSE 78; RESP 18; TEMP 36.16956; O2SAT 97
[2023-11-20 04:00] VITALS: BP 122/55; PULSE 70; RESP 18; TEMP 36.55848; O2SAT 97
[2023-11-20 08:00] VITALS: BP 144/67; PULSE 73; RESP 20; TEMP 36.50292; O2SAT 99
[2023-11-20 12:00] VITALS: BP 109/43; PULSE 77; RESP 18; TEMP 36.78072; O2SAT 100
[2023-11-20 16:00] VITALS: BP 102/50; PULSE 73; RESP 18; TEMP 36.72516; O2SAT 98
[2023-11-20 16:32] VITALS: BP 102/50; PULSE 73; TEMP 98.1; O2SAT 97
== END 2023-11-20 18:50 | disposition hospice, home (50) | DRG 554 ==
LOC: ER 19:01 → EDBEDREQ 19:51 → 5WST 21:57 → EDBEDREQ 22:04 → 6EST 11-17 09:08 → 7WST 11-17 18:32
PROVIDERS: ADMIT Internal Medicine; ATTEND Internal Medicine
DX: M17.12 Unilateral primary osteoarthritis, left knee (principal); D64.9 Anemia, unspecified; I10 Essential (primary) hypertension; R26.2 Difficulty in walking, not elsewhere classified; F03.90 Unspecified dementia, unspecified severity, without behavioral disturbance, psychotic disturbance, mood disturbance, and anxiety; Z51.5 Encounter for palliative care; Z86.73 Personal history of transient ischemic attack (TIA), and cerebral infarction without residual deficits
CPT/HCPCS: 36415; 71045; 73560; 80048; 83880; 84484; 85025; 94640; 97162; 99285; C1893; J2270; J2405

== ENCOUNTER 2024-02-07 10:33 | Inpatient (IN) | payer MEDICARE, OTHER ==
[~2024-02-07] VITALS: Ht 157.5 cm; Wt 56.2 kg
[2024-02-07 11:40] LABS: BASOPHILS % 0.3 % (0.0-2.0); DIFFERENTIAL COMMENT 0; EOSINOPHILS % 3.6 % (0.0-5.0); HEMATOCRIT. 29.7 % (36.0-48.0); HEMOGLOBIN. 8.9 g/dL (12.0-16.0); LYMPHOCYTES % 12.5 % (20.0-50.0); MEAN CORPUSCULAR HEMOGLOBIN 24.8 pg (28.0-32.0); MEAN CORPUSCULAR HGB CONC 29.9 g/dL (31.0-37.0); MEAN CORPUSCULAR VOLUME 83.1 fL (81.0-99.0); MEAN PLATELET VOLUME 8.1 fl (7.4-10.4); MONOCYTES % 8.3 % (2.0-8.0); NEUTROPHILS % 75.3 % (40.0-76.0); PLATELET 266 x1000/uL (130-400); RED BLOOD CELL COUNT 3.57 mill/uL (4.2-5.4); RED CELL DISTRIBUTION WIDTH 20.9 % (11.6-14.6)
[2024-02-07 11:50] LABS: CHLORIDE 107 mEq/L (98-107); POTASSIUM 4.2 mEq/L (3.5-5.1); SODIUM 139 mEq/L (136-145)
[2024-02-07 11:51] LABS: CALCIUM 10.4 mg/dL (8.7-10.4); CARBON DIOXIDE 25 mEq/L (21-32)
[2024-02-07 11:56] LABS: CREATININE 1.1 mg/dL (0.6-1.0); GLUCOSE 118 mg/dL (70-105); TROPONIN I HIGH SENSITIVITY 10 ng/L (3.0-34); UREA NITROGEN BLOOD 17 mg/dL (9-23)
[2024-02-07] MEDS ORDERED: DIPHENHYDRAMINE 50MG/ML VIAL IV PRN (13:30)
[2024-02-07] MEDS ORDERED: IPRATROPIUM/ALBUTEROL 0.5-3(2.5)MG/3ML NEB NEB PRN (13:30)
[2024-02-07] MEDS ORDERED: DOCUSATE SODIUM 100MG CAPSULE PO PRN (13:30)
[2024-02-07] MEDS ORDERED: CLONIDINE 0.1MG TABLET PO PRN (13:30)
[2024-02-07] MEDS ORDERED: ONDANSETRON HCL 4MG/2ML INJ IV PRN (13:30)
[2024-02-07] MEDS ORDERED: MAGNESIUM/ALUMINUM HYDROXIDE/SIMETHICONE 30ML UDC PO PRN (13:30)
[2024-02-07] MEDS ORDERED: NA PHOS,M-B/NA PHOS,DI-BA ENEMA 118ML PR PRN (13:30)
[2024-02-07] MEDS ORDERED: GUAIFENESIN 200MG/10ML SUGAR FREE UDC PO PRN (13:30)
[2024-02-07] MEDS ORDERED: LORAZEPAM 0.5MG TABLET PO PRN (13:30)
[2024-02-07 16:41] VITALS: BP 137/64; PULSE 79; RESP 14; TEMP 36.89184; O2SAT 100
[2024-02-07 16:53] VITALS: BP 137/64; PULSE 79; RESP 14; TEMP 36.9184
[2024-02-07 20:00] VITALS: BP 154/71; PULSE 81; RESP 21; TEMP 37.28076; O2SAT 95
[2024-02-07 21:38] LABS: CREATINE KINASE MB FRACTION 1.4 ng/mL (0.5-3.6)
[2024-02-08] VITALS: BP 135/85; PULSE 81; RESP 16; TEMP 37.28076; O2SAT 96
[2024-02-08 00:20] LABS: CREATINE KINASE MB FRACTION 1.2 ng/mL (0.5-3.6)
[2024-02-08 04:00] VITALS: BP 144/71; PULSE 72; RESP 16; TEMP 36.78072; O2SAT 100
[2024-02-08 06:34] LABS: CLARITY URINE TURBID (CLEAR); COLOR URINE YELLOW (YELLOW); GLUCOSE URINE NEGATIVE (NEGATIVE); KETONES URINE NEGATIVE (NEGATIVE); LEUKOCYTE ESTERASE URINE TRACE (NEGATIVE); NITRITE URINE NEGATIVE (NEGATIVE); OCCULT BLOOD URINE TRACE (NEGATIVE); PH URINE >=9.0 (4.5-8.0); PROTEIN URINE NEGATIVE (NEGATIVE); SPECIFIC GRAVITY URINE 1.007 (1.005-1.030)
[2024-02-08 07:46] LABS: BASOPHILS % 0.5 % (0.0-2.0); EOSINOPHILS % 4.9 % (0.0-5.0); HEMATOCRIT. 27.1 % (36.0-48.0); HEMOGLOBIN. 8.5 g/dL (12.0-16.0); LYMPHOCYTES % 24.3 % (20.0-50.0); MEAN CORPUSCULAR HEMOGLOBIN 25.2 pg (28.0-32.0); MEAN CORPUSCULAR HGB CONC 31.5 g/dL (31.0-37.0); MONOCYTES % 9.7 % (2.0-8.0); NEUTROPHILS % 60.6 % (40.0-76.0); PLATELET 246 x1000/uL (130-400); RED BLOOD CELL COUNT 3.39 mill/uL (4.2-5.4); RED CELL DISTRIBUTION WIDTH 20.5 % (11.6-14.6)
[2024-02-08 08:00] VITALS: BP 155/78; PULSE 62; RESP 17; TEMP 36.83628; O2SAT 100
[2024-02-08 08:09] LABS: AMORPHOUS SEDIMENT URINE 3+ /lpf; BACTERIA URINE 1+; SQUAMOUS EPITHELIAL CELL URINE 1+ /lpf (RARE/1+); TRIPLE PHOSPHATE CRYSTAL URINE 1+ /lpf; YEAST URINE NONE SEEN
[2024-02-08] MEDS: ASPIRIN 81MG EC TABLET PO SCH (08:24)
[2024-02-08 08:37] LABS: HEPATITIS B SURFACE ANTIGEN NEGATIVE (Negative)
[2024-02-08 08:58] LABS: HEPATITIS C AB NON REACTIVE (Neg) (Negative)
[2024-02-08 09:04] LABS: CHLORIDE 106 mEq/L (98-107); POTASSIUM 4.7 mEq/L (3.5-5.1); SODIUM 139 mEq/L (136-145)
[2024-02-08 09:05] LABS: CARBON DIOXIDE 27 mEq/L (21-32)
[2024-02-08 09:10] LABS: GLUCOSE 76 mg/dL (70-105); UREA NITROGEN BLOOD 22 mg/dL (9-23)
[2024-02-08 09:12] LABS: ALANINE AMINOTRANSFERASE 9 IU/L (10-49); ALBUMIN 3.2 g/dL (3.2-4.8); ASPARTATE AMINOTRANSFERASE 23 IU/L (<34); BILIRUBIN TOTAL 0.4 mg/dL (0.1-1.0); PROTEIN TOTAL 6.9 g/dL (6.0-8.3)
[2024-02-08] MEDS ORDERED: ZINC OXIDE 20% OINT 30GM TOP PRN (09:45)
[2024-02-08 12:00] VITALS: BP 135/72; PULSE 64; RESP 14; TEMP 36.78072; O2SAT 100
[2024-02-08] MEDS ORDERED: MECL-299 PO (12:00)
[2024-02-08] MEDS ORDERED: CLOP75TA33 PO (12:00)
[2024-02-08] MEDS ORDERED: ATOR-2 PO (12:08)
[2024-02-08] MEDS ORDERED: LIDO700A30 TP (12:15)
[2024-02-08] MEDS ORDERED: HYDR-4009 PO (12:15)
[2024-02-08 12:55] LABS: URIC ACID 5.4 mg/dL (3.1-7.8)
[2024-02-08 12:56] LABS: IRON 47 ug/dL (50-170)
[2024-02-08 12:58] LABS: TOTAL IRON BINDING CAPACITY 215 ug/dl (250-425)
[2024-02-08 16:00] VITALS: BP 129/71; PULSE 70; RESP 17; TEMP 37.00296; O2SAT 98
[2024-02-08 20:00] VITALS: BP 144/81; RESP 16; TEMP 36.89184; O2SAT 99
[2024-02-08] MEDS: LIDOCAINE 5% PATCH TOP SCH (21:00)
[2024-02-08] MEDS: HYDROCODONE/ACETAMINOPHEN 5/325MG TABLET PO PRN (21:23)
[2024-02-08] MEDS: DONEPEZIL HCL 5MG TABLET PO SCH (21:23)
[2024-02-09] VITALS (7 sets, daily range): BP systolic 112–141; BP diastolic 59–71; PULSE 60–88; RESP 15–27; TEMP 36.28068–36.9474; O2SAT 98–99
[2024-02-09 07:40] LABS: CARBON DIOXIDE 28 mEq/L (21-32); CHLORIDE 103 mEq/L (98-107); POTASSIUM 4.6 mEq/L (3.5-5.1); SODIUM 136 mEq/L (136-145)
[2024-02-09 07:41] LABS: CALCIUM 10.1 mg/dL (8.7-10.4)
[2024-02-09 07:46] LABS: GLUCOSE 87 mg/dL (70-105); UREA NITROGEN BLOOD 23 mg/dL (9-23)
[2024-02-09 07:58] LABS: VITAMIN B12 SERUM 894 pg/mL (211-911)
[2024-02-09 07:59] LABS: FERRITIN 281 ng/mL (10-291)
[2024-02-09 08:35] LABS: BASOPHILS % 0.7 % (0.0-2.0); DIFFERENTIAL COMMENT 0; EOSINOPHILS % 7.7 % (0.0-5.0); HEMATOCRIT. 27.3 % (36.0-48.0); HEMOGLOBIN. 8.8 g/dL (12.0-16.0); MEAN CORPUSCULAR HEMOGLOBIN 25.5 pg (28.0-32.0); MEAN CORPUSCULAR HGB CONC 32.1 g/dL (31.0-37.0); MEAN CORPUSCULAR VOLUME 79.4 fL (81.0-99.0); MEAN PLATELET VOLUME 8.6 fl (7.4-10.4); MONOCYTES % 12.5 % (2.0-8.0); NEUTROPHILS % 48.1 % (40.0-76.0); PLATELET 249 x1000/uL (130-400); RED BLOOD CELL COUNT 3.44 mill/uL (4.2-5.4); RED CELL DISTRIBUTION WIDTH 20.5 % (11.6-14.6); WHITE BLOOD COUNT 2.9 x1000/uL (4.5-11.0)
[2024-02-09] MEDS: CLOPIDOGREL 75MG TABLET PO SCH (08:49)
[2024-02-09] MEDS: AMLODIPINE 5MG TABLET PO SCH (08:49)
[2024-02-09] MEDS ORDERED: NALOXONE HCL 0.4MG/ML VIAL IV PRN (10:30)
[2024-02-09] MEDS: CEFTRIAXONE 1GM/50ML 50 ML IV SCH (12:51)
[2024-02-09] MEDS: FERROUS SULFATE 325MG TABLET PO SCH (12:51)
[2024-02-09] MEDS ORDERED: ZINC OXIDE 20% OINT 30GM TOP PRN (15:30)
[2024-02-10 00:02] VITALS: BP 127/64; PULSE 90; RESP 31; TEMP 36.16956; O2SAT 98
[2024-02-10 04:02] VITALS: BP 144/64; PULSE 72; RESP 18; TEMP 36.114; O2SAT 94
[2024-02-10 07:10] LABS: CARBON DIOXIDE 28 mEq/L (21-32); CHLORIDE 106 mEq/L (98-107); POTASSIUM 4.6 mEq/L (3.5-5.1); SODIUM 137 mEq/L (136-145)
[2024-02-10 07:11] LABS: CALCIUM 10.3 mg/dL (8.7-10.4)
[2024-02-10 07:16] LABS: GLUCOSE 80 mg/dL (70-105); TRIGLYCERIDE 74 mg/dL (0-150); UREA NITROGEN BLOOD 23 mg/dL (9-23)
[2024-02-10 07:17] LABS: LDL CHOLESTEROL 82 mg/dL (5-100)
[2024-02-10 07:18] LABS: CHOLESTEROL 150 mg/dL (<200); HDL CHOLESTEROL 48 mg/dL (>65); PHOSPHORUS 2.8 mg/dL (2.5-4.9)
[2024-02-10 08:00] VITALS: BP_SYST 115; BP_SYST 128; BP_DIAS 68; BP_DIAS 97; PULSE 73; RESP 17; TEMP 36.72516; O2SAT 100
[2024-02-10 08:47] LABS: BASOPHILS % 0.6 % (0.0-2.0); DIFFERENTIAL COMMENT 0; HEMATOCRIT. 26.9 % (36.0-48.0); HEMOGLOBIN. 8.9 g/dL (12.0-16.0); LYMPHOCYTES % 23.9 % (20.0-50.0); MEAN CORPUSCULAR HEMOGLOBIN 26.3 pg (28.0-32.0); MEAN CORPUSCULAR HGB CONC 33.2 g/dL (31.0-37.0); MEAN CORPUSCULAR VOLUME 79.2 fL (81.0-99.0); MEAN PLATELET VOLUME 8.4 fl (7.4-10.4); MONOCYTES % 11.5 % (2.0-8.0); PLATELET 247 x1000/uL (130-400); RED BLOOD CELL COUNT 3.39 mill/uL (4.2-5.4); WHITE BLOOD COUNT 3.3 x1000/uL (4.5-11.0)
[2024-02-10 12:00] VITALS: BP 107/54; PULSE 63; RESP 16; TEMP 36.55848; O2SAT 100
[2024-02-10 16:00] VITALS: BP 119/53; PULSE 75; RESP 15; TEMP 36.6696; O2SAT 99
[2024-02-10] MEDS: ASCORBIC ACID 500 MG TABLET PO SCH (16:07)
[2024-02-10] MEDS: MULTIVITAMINS,THER W-MINERALS TABLET PO SCH (16:07)
[2024-02-10 20:02] VITALS: BP 123/67; PULSE 66; RESP 13; TEMP 36.28068; O2SAT 100
[2024-02-11 00:02] VITALS: BP 133/60; PULSE 84; RESP 18; TEMP 36.16956; O2SAT 100
[2024-02-11] MEDS: ACETAMINOPHEN 325MG TABLET PO PRN (00:44)
[2024-02-11 04:02] VITALS: BP 128/68; PULSE 91; RESP 20; TEMP 36.28068; O2SAT 100
[2024-02-11 08:00] VITALS: BP_SYST 102; BP_SYST 182; BP_DIAS 166; BP_DIAS 85; PULSE 70; RESP 17; TEMP 36.61404; O2SAT 100
[2024-02-11 12:00] VITALS: BP 117/55; PULSE 76; RESP 17; TEMP 36.6696; O2SAT 100
[2024-02-11 16:00] VITALS: BP 101/77; PULSE 72; RESP 16; TEMP 36.72516; O2SAT 100
[2024-02-11 20:00] VITALS: BP 101/77; PULSE 87; RESP 18; TEMP 36.6696; O2SAT 100
[2024-02-11] MEDS: MECLIZINE 25MG TABLET PO PRN (21:42)
[2024-02-12] VITALS (8 sets, daily range): BP systolic 92–152; BP diastolic 46–90; PULSE 76–97; RESP 15–22; TEMP 36.44736–37.00296; O2SAT 99–100
[2024-02-12] MEDS: CELECOXIB 200MG CAPSULE PO SCH (09:22)
[2024-02-12] MEDS: ENOXAPARIN 40MG/0.4ML SYR SUBCUT SCH (16:08)
[2024-02-13] VITALS (7 sets, daily range): BP systolic 117–145; BP diastolic 57–77; PULSE 70–85; RESP 15–22; TEMP 36.44736–37.00296; O2SAT 99–100
== END 2024-02-13 21:00 | DRG 73 ==
LOC: ER 10:46 → 5WST 12:22 → EDBEDREQ 12:28 → EDBEDREQTM 12:28 → 3WST 14:57
PROVIDERS: ADMIT Internal Medicine; ATTEND Internal Medicine
DX: G90.89 Other disorders of autonomic nervous system (principal); L89.153 Pressure ulcer of sacral region, stage 3; M80.852A Other osteoporosis with current pathological fracture, left femur, initial encounter for fracture; D64.9 Anemia, unspecified; F03.90 Unspecified dementia, unspecified severity, without behavioral disturbance, psychotic disturbance, mood disturbance, and anxiety; I10 Essential (primary) hypertension; I25.2 Old myocardial infarction; Z95.0 Presence of cardiac pacemaker; Z86.73 Personal history of transient ischemic attack (TIA), and cerebral infarction without residual deficits; Z79.01 Long term (current) use of anticoagulants; Z79.899 Other long term (current) drug therapy; Z79.02 Long term (current) use of antithrombotics/antiplatelets
CPT/HCPCS: 36415; 71045; 73110; 73560; 73700; 74176; 80048; 80053; 80061; 81003; 82550; 82553; 82607; 82728; 83540; 83550; 83735; 83880; 84100; 84145; 84443; 84484; 84550; 85025; 86705; 87340; 93005; 93306; 93880; 93970; 95816; 97110; 97162; 97166; 97530; 97535; 99285; A6261; J0696; J1650; J8597

== ENCOUNTER 2024-08-14 16:33 | Emergency (ER) | payer MEDICARE, MEDICAID ==
[~2024-08-14] VITALS: Ht 172.7 cm; Wt 70.0 kg
[~2024-08-14 16:33] MED LIST changes: +ASPI-1160 PO; -ASPI-1497 MT; +ATOR-2 PO; -BRIM.2 BOTHEYE; +CLOP75TA33 PO; -DICL100G58 TP; +FAMO20TA8 PO; +KEPP250 PO; -LIDO700A30 TOP; +LIDO700A30 TP; +MECL-299 PO; -TOPUD PO
[2024-08-14 16:52] VITALS: O2SAT 98
[2024-08-14 19:02] VITALS: BP 112/50; PULSE 76; RESP 16; O2SAT 98
== END 2024-08-14 19:04 | disposition home or self-care (01) ==
LOC: ER 16:33
DX: R56.9 Unspecified convulsions (principal); F03.90 Unspecified dementia, unspecified severity, without behavioral disturbance, psychotic disturbance, mood disturbance, and anxiety; I11.0 Hypertensive heart disease with heart failure; I50.9 Heart failure, unspecified; Z79.02 Long term (current) use of antithrombotics/antiplatelets; Z79.82 Long term (current) use of aspirin; Z79.899 Other long term (current) drug therapy
CPT/HCPCS: 99283